=== PATIENT | male | born 1995 | race Caucasian/White ===

== ENCOUNTER 2019-06-22 21:50 | Inpatient (IN) | payer OTHER ==
[~2019-06-22] VITALS: Ht 175.3 cm; Wt 136.1 kg
[2019-06-22 21:55] VITALS: BP 150/78
--- NOTE | 2019-06-22 21:57 | NUR ---
TO LOBBY A/W BED AMBULATORY
--- NOTE | 2019-06-22 22:30 | NUR ---
PT. TAKEN TO BED 4 VIA WHEELCHAIR.
[2019-06-22] MEDS ORDERED: KETOROLAC 30 MG/ML VIAL IVP ONE (22:35)
[2019-06-22] MEDS ORDERED: LIDOCAINE MPF 1% 10 ML ONE (22:47)
--- NOTE | 2019-06-22 22:50 | NUR ---
24 Y/O M PRESENTS TO ER C/O S/P STEPPED ON A TOOTHPICK WITH PUNCTURE WOUND LAST MONDAY ON HIS LEFT FOOT WITH SWELLING, REDNESS, AND PAIN, SEEN IN AN URGENT CARE WITH PRESCRIPTION OG BACTRIM AND IBUPROFEN , TETANUS VACCINE UNKNOWN DATE. LEFT FOOT HAS ERYTHEMA AND SWELLING NOTED. HOB ELEVATED, BED IN LOWEST POSITION, SIDE RAIL UP X1. ERMD AT BEDSIDE. ALLERGIES: NKA MED HX: NONE
[2019-06-22] MEDS ORDERED: ceFAZolin 1,000 MG VIAL ONE (22:56)
[2019-06-22] MEDS ORDERED: LIDOCAINE MPF 1% 10 MG/ML VIAL INJ ONE (23:00)
--- NOTE | 2019-06-22 23:03 | NUR ---
CLEANED WOUND ON LEFT FOOT, APPLIED BACITRACIN AND NON ADHERENT DRESSING AND GAUZE WRAP
[2019-06-22 23:04] LABS: BASOPHILS # (AUTO) 0.1 K/uL (0.00-0.22); EOSINOPHILS # (AUTO) 0.2 K/uL (0-0.4); LYMPHOCYTES # (AUTO) 1.8 K/uL (2.0-11.5); MEAN CORPUSCULAR VOLUME 88.1 fL (80-94)
[2019-06-22] MEDS ORDERED: BACITRACIN OINT 500 UNITS/GM PKT TP ONE (23:05)
[2019-06-22 23:09] LABS: BASOPHILS % (AUTO) 0.7 % (0.0-2.0); EOSINOPHILS % (AUTO) 2.1 % (0.0-4.0); HEMATOCRIT 43.3 % (36-52); HEMOGLOBIN 14.5 g/dL (12.0-18.0); LYMPHOCYTES % (AUTO) 16.4 % (20.5-51.1); MEAN CORPUSCULAR HEMOGLOBIN 30 pg (27-31); MEAN CORPUSCULAR HGB CONC 33 g/dL (33-37); MONOCYTES % (AUTO) 8.9 % (1.7-9.3); NEUTROPHILS # (AUTO) 7.8 K/uL (1.8-7.7); NEUTROPHILS % (AUTO) 71.9 % (42.2-75.2); PLATELET COUNT (AUTO) 222 K/uL (140-450); RED BLOOD CELL COUNT(AUTO) 4.91 MIL/uL (4.20-6.10); WHITE BLOOD COUNT (AUTO) 10.8 K/uL (4.8-10.8)
--- NOTE | 2019-06-22 23:15 | NUR ---
PT AMBULATED TO RESTROOM
[2019-06-22 23:28] LABS: ALBUMIN 3.3 g/dL (3.4-5.0); ANION GAP 16.3 (8-16); CARBON DIOXIDE 24.7 mmol/L (21-32); CREATININE 1.2 mg/dL (0.7-1.3); TOTAL BILIRUBIN 0.3 mg/dL (0.0-1.0)
--- NOTE | 2019-06-23 | NUR ---
PT RESTING IN BED ON CELL PHONE. VSS. WILL CONTINUE TO MONITOR.
[2019-06-23 00:15] LABS: APPEARANCE,URINE CLEAR (CLEAR); BILIRUBIN,URINE 1+ (NEGATIVE); BLOOD, URINE NEGATIVE (NEGATIVE); COLOR,URINE YELLOW (YELLOW); LEUKOCYTE ESTERASE ,URINE NEGATIVE (NEGATIVE); NITRITE, URINE NEGATIVE (NEGATIVE); UGLUCOSE NEGATIVE (NEGATIVE)
[2019-06-23] MEDS ORDERED: KETOROLAC 30 MG/ML VIAL IVP PRN (00:15)
[2019-06-23] MEDS ORDERED: HYDROcodone/APAP 7.5/325 MG 1 TAB PO PRN (00:15)
[2019-06-23] MEDS ORDERED: ACETAMINOPHEN 325 MG TAB PO PRN (00:15)
[2019-06-23 00:25] LABS: RBC,URINE 0-5 /HPF (0-5); WBC,URINE 0-5 /HPF (0-5)
[2019-06-23 00:26] LABS: CALCIUM OXALATE CRYSTALS,UR 0-2 /HPF (None Seen)
[2019-06-23 00:38] VITALS: BP 130/68
--- NOTE | 2019-06-23 00:38 | NUR ---
ADMITTED 34 M FROM ER. CAME BY LINA DUE TO LEFT FOOT SWELLING, REDNESS SECONDARY TO CELLULITIS. WITH DRESSING ON . NO BLEEDING NOTED. MED SURG PT. AWAKE,ALERT AND ORIENTED X4. DENIES ANY PAIN AT THIS TIME. WITH ANCEF STILL INFUSING ON THE LEFT AC G#20. CLEAR AND PATENT. CAN AMBULATE WITH SLIGHT LIMPING ON TH ELT FOOT. ORIENTED TO HOSPITAL ROUTINES, BED ON LOW POSITION, SIDE RAILS UP X2. CALL LIGHT AND URINAL PLACED WITHIN EASY REACH. PLAN OF CARE DISCUSSED AND VERBALIZED UNDERSTANDING. WILL CONTINUE TO MONITOR.
--- NOTE | 2019-06-23 00:39 | NUR ---
TRANSFER OF CARE AND REPORT GIVEN TO ELIUD RN
--- NOTE | 2019-06-23 00:39 | NUR ---
Patient will be admitted to care of DR. RODRIGUEZ. Admited to MED/SURG. Will go to [id number]. Belongings list completed. Report to ROCKY KLINE.
[2019-06-23 00:50] LABS: BARBITURATE, URINE NEG. ng/ml (NEG <=200); BENZODIAZEPINE, URINE NEG. ng/mL (NEG <=200); CANNABINOID, URINE NEG. ng/mL (NEG <=50); COCAINE, URINE NEG. ng/mL (NEG <=300); OPIATE, URINE NEG. ng/mL (NEG <=2000); PHENCYCLIDINE SCREEN,URINE NEG. ng/mL (NEG <=25)
[2019-06-23 00:53] LABS: PROTHROMBIN TIME 8.8 secs (10.8-13.4)
[2019-06-23 00:58] LABS: CHOL/HDL RATIO 5.8 (1-4.5); FREE T4 (FREE THYROXINE) 1.02 ng/dL (0.76-1.46); MAGNESIUM 1.7 mg/dL (1.8-2.4); PHOSPHORUS 2.8 mg/dL (2.5-4.9); THYROID STIMULATING HORMONE 3.31 uIU/mL (0.34-3.74)
[2019-06-23] MEDS: NACL 0.9% 1,000 ML IV SCH ×2 (01:21→18:09)
--- NOTE | 2019-06-23 01:21 | NUR ---
NS @60 ML /HR STARTED ON THE LEFT AC G#20. PT NPO EXCEPT MEDS FOR NOW. PT MADE AWARE.
--- NOTE | 2019-06-23 02:20 | NUR ---
TOOK PICTURE OF THE LT FOOT CELLULITIS . CLEANED AND SPECIMEN FOR AEROBIC AND ANAEROBIC CULTURE COLLECTED . SEND TO LAB.
[2019-06-23] MEDS ORDERED: CLINDAMYCIN 600 MG/4 ML VIAL ONE (03:18)
[2019-06-23] MEDS: CLINDAMYCIN 600 MG in DEXTROSE 5% 50 ML IV SCH ×3 (04:32→20:44)
--- NOTE | 2019-06-23 04:32 | NUR ---
CLEOCIN IVPB IST DOSE STARTED . WILL CONTINUE TO MONITOR.
--- NOTE | 2019-06-23 05:05 | NUR ---
MAGNESIUM LOW 1.7 SO /ANALY ,RESIDENT MADE AWARE. WILL WAIT FOR ORDER.
--- NOTE | 2019-06-23 06:41 | NUR ---
AWAKE. NO C/O ANY PAIN NOR DISCOMFORT NOTED.
--- NOTE | 2019-06-23 07:31 | NUR ---
ENDORSED PT IN STABLE CONDITION TO AM NURSE.
--- NOTE | 2019-06-23 07:35 | NUR ---
PT IS AO X4. BEDSIDE RAILS UP X2, BED LOCKED AND IN LOWEST POSITION, URINAL AT BEDSIDE. ASSESSMENT WAS COMPLETED WITH NURSE STUDENT WITH RN OBSERVING. NO COMPLAINTS AT THIS TIME
[2019-06-23 08:00] VITALS: BP 120/59
[2019-06-23] MEDS: LACTOBACILLUS RHAMNOSUS GG 1 EACH CAP PO SCH (09:02)
[2019-06-23 10:15] LABS: BASOPHILS % (AUTO) 0.5 % (0.0-2.0); EOSINOPHILS # (AUTO) 0.1 K/uL (0-0.4); EOSINOPHILS % (AUTO) 1.2 % (0.0-4.0); HEMATOCRIT 40.4 % (36-52); HEMOGLOBIN 13.5 g/dL (12.0-18.0); LYMPHOCYTES # (AUTO) 1.3 K/uL (2.0-11.5); LYMPHOCYTES % (AUTO) 15.4 % (20.5-51.1); MEAN CORPUSCULAR HEMOGLOBIN 30 pg (27-31); MEAN CORPUSCULAR HGB CONC 33 g/dL (33-37); MEAN CORPUSCULAR VOLUME 88.4 fL (80-94); MONOCYTES # (AUTO) 0.8 K/uL (0.8-1.0); MONOCYTES % (AUTO) 9.3 % (1.7-9.3); NEUTROPHILS # (AUTO) 6.3 K/uL (1.8-7.7); NEUTROPHILS % (AUTO) 73.6 % (42.2-75.2); PLATELET COUNT (AUTO) 203 K/uL (140-450); RED BLOOD CELL COUNT(AUTO) 4.57 MIL/uL (4.20-6.10); RED CELL DISTRIBUTION WIDTH 12.8 % (11.6-13.7); WHITE BLOOD COUNT (AUTO) 8.5 K/uL (4.8-10.8)
--- NOTE | 2019-06-23 10:30 | NUR ---
SPOKE TO LABS AND THEY CONFIRMED THAT THEY WILL RUN THE LAB RESULTS FOR MAGNESIUM RN WILL THEN CALL THE PROVIDER IF LEVEL IS STILL BELOW 1.8
[2019-06-23 10:57] LABS: ANION GAP 15.7 (8-16); CARBON DIOXIDE 23.5 mmol/L (21-32); CREATININE 1.1 mg/dL (0.7-1.3); POTASSIUM 4.2 mmol/L (3.5-5.1)
--- NOTE | 2019-06-23 11:08 | NUR ---
DR. SALAZAR WAS HERE TO SEE PT AND TOLD RN THAT HE WILL CHANGE THE DIET ORDERS SO PT CAN EAT SINCE QUALITY CONTROL AUDITOR WILL NOT DO ANY PROCEDURE ON PT WILL SHARE INFO WITH PT
--- NOTE | 2019-06-23 11:33 | NUR ---
CALLED [facility] AND THEY SAID THAT THEY WILL BRING A LUNCH TRAY FOR PATIENT
--- NOTE | 2019-06-23 12:40 | NUR ---
PT ATE 100% OF HIS LUNCH MEAL
--- NOTE | 2019-06-23 13:14 | NUR ---
PT RECEIVING ANTIBIOTICS NOW
[2019-06-23 16:18] VITALS: BP 109/50
--- NOTE | 2019-06-23 16:35 | NUR ---
PT TOLD RN THAT HE DOESN'T HAVE PAIN AT THIS TIME AND WILL INFORM HER IF HE NEEDS PAIN MED
--- NOTE | 2019-06-23 17:58 | NUR ---
PT RECEIVED SCDS
--- NOTE | 2019-06-23 18:42 | NUR ---
DRESSING ON LEFT FOOT WAS CHANGED. PATIENT TOLERATED WELL
--- NOTE | 2019-06-23 19:07 | NUR ---
PT ENDORSED IN STABLE CONDITIONS TO NIGHT NURSE ALL QUESTIONS ANSWERED
--- NOTE | 2019-06-23 19:12 | NUR ---
RECEIVED PT IN STABLE CONDITION FORM AM NURSE. MED SURG PT. AWAKE,ALERT AND ORIENTED X4. WITH NO C/O ANY PAIN NOR DISCOMFORT NOTED. LT FOOT CELLULITIS WITH DRESSING IN PLACED . STILL SWOLLEN AND HAS REDNESS. IVF INFUSING WELL ON THE LT AC G#20.CLEAR AND PATENT. PLAN OF CARE DISCUSSED AND VERBALIZED UNDERSTANDING. BED ON LOW POSITION. SIDE RIALS UP X2. CALL LIGHT AND URINAL WITHIN EASY REACH. WILL CONTINUE TO MONITOR.
--- NOTE | 2019-06-23 21:15 | NUR ---
PT ASSISTED UP TO WASH UP IN BEDSIDE. NO C/O ANY DISCOMFORT NOTED.
--- NOTE | 2019-06-23 22:30 | NUR ---
PT STILL AWAKE. NO C/O ANY PAIN NOR DISCOMFORT NOTED.
[2019-06-23 23:44] VITALS: BP 109/68
--- NOTE | 2019-06-24 00:30 | NUR ---
PT AWAKE. NO C/O ANY DISCOMFORT FROM THE LT FOOT AT THIS TIME.
--- NOTE | 2019-06-24 02:00 | NUR ---
ASLEEP. NO C/O ANY PAIN NOR DISCOMFORT NOTED.
--- NOTE | 2019-06-24 04:00 | NUR ---
PT IS ASLEEP. STABLE DURING THE NIGHT.
[2019-06-24] MEDS: CLINDAMYCIN 600 MG in DEXTROSE 5% 50 ML IV SCH ×3 (04:21→20:08)
--- NOTE | 2019-06-24 07:00 | NUR ---
ENDORSED PT IN STABLE CONDITION TO AM NURSE.
[2019-06-24 07:25] LABS: BASOPHILS % (AUTO) 0.6 % (0.0-2.0); EOSINOPHILS # (AUTO) 0.1 K/uL (0-0.4); EOSINOPHILS % (AUTO) 1.8 % (0.0-4.0); HEMATOCRIT 41.3 % (36-52); HEMOGLOBIN 13.6 g/dL (12.0-18.0); LYMPHOCYTES # (AUTO) 1.4 K/uL (2.0-11.5); LYMPHOCYTES % (AUTO) 17.8 % (20.5-51.1); MEAN CORPUSCULAR HEMOGLOBIN 29 pg (27-31); MEAN CORPUSCULAR HGB CONC 33 g/dL (33-37); MEAN CORPUSCULAR VOLUME 88.2 fL (80-94); MONOCYTES # (AUTO) 0.8 K/uL (0.8-1.0); MONOCYTES % (AUTO) 9.7 % (1.7-9.3); NEUTROPHILS # (AUTO) 5.4 K/uL (1.8-7.7); NEUTROPHILS % (AUTO) 70.1 % (42.2-75.2); PLATELET COUNT (AUTO) 223 K/uL (140-450); RED BLOOD CELL COUNT(AUTO) 4.68 MIL/uL (4.20-6.10); RED CELL DISTRIBUTION WIDTH 13.1 % (11.6-13.7); WHITE BLOOD COUNT (AUTO) 7.8 K/uL (4.8-10.8)
[2019-06-24 07:34] LABS: ANION GAP 12.3 (8-16); CARBON DIOXIDE 26.1 mmol/L (21-32); POTASSIUM 4.4 mmol/L (3.5-5.1)
--- NOTE | 2019-06-24 07:35 | NUR ---
RECEIVED PT IN STABLE CONDITIONS. PT IS AO X4. BEDSIDE RAILS UP X2, BED LOCKED AND IN LOWEST POSITION. NO C/O PAIN AT THIS TIME.
[2019-06-24 07:43] LABS: MAGNESIUM 2.1 mg/dL (1.8-2.4); PHOSPHORUS 3.2 mg/dL (2.5-4.9)
[2019-06-24 08:00] VITALS: BP_SYST 129; BP_SYST 74; BP_DIAS 120; BP_DIAS 74
--- NOTE | 2019-06-24 08:25 | NUR ---
PATIENT HAS BEEN SCREENED AND CATEGORIZED MODERATE NUTRITION RISK. PATIENT WILL BE SEEN WITHIN 3-5 DAYS OF ADMISSION. 06/25/19 06/27/[address]
[2019-06-24] MEDS: LACTOBACILLUS RHAMNOSUS GG 1 EACH CAP PO SCH (08:47)
[2019-06-24] MEDS: NACL 0.9% 1,000 ML IV SCH (08:47)
--- NOTE | 2019-06-24 09:00 | NUR ---
PT HAS A BLOOD PRESSURE OF 120/76 FOR 0800 VITALS. THE FLOWSHEET COULDN'T BE EDITED.
--- NOTE | 2019-06-24 10:28 | NUR ---
PT.HAS BEEN SEEN AND EXAM BY RUBEN MURRY, 06/23/2019. X-RAY AND US DONE, LEFT DORSAL FEET ERYTHEMA, EDEMA AND PAIN TO TOUCH. 10/21, PER PT. REDNESS IS DECREASING, PLEASE CONTINUE TO FOLLOW DIVISION SERGEANT'S RECOMMENDATIONS Addendum: 06/24/19 at 1048 by Lilo Golden RN (Grace) LEFT HALLUX PLANTAR PARTIAL THICKNESS LOSS OF SKIN ,1.5X1.5CM WITH SUPERFICIAL DEPTH, WOUND BED IS PINK, MOIST SHELLIE-WOUND SKIN INTACT WITH SWELLING, PT. DEFILES OF PAIN, RECOMMEND TO CLEANSE LEFT HALLUX PLANTAR WITH NS, PAT DRY APPLY SILVASORB GEL COVER WITH DRY DRESSING QD AND PRN IF SOILING. CONTINUE TO FOLLOW UP WITH DR. MIRANDA., PT. VERBALIZES UNDERSTANDING.
--- NOTE | 2019-06-24 10:33 | NUR ---
CLINDAMYCIN INFUSING. PT TOLERATING WELL. NO COMPLAINTS AT THIS TIME
--- NOTE | 2019-06-24 10:51 | NUR ---
SPOKE TO DR. MARINO OF RECOMMENDATION,PER DR. MARINO HE WILL FOLLOW.
--- NOTE | 2019-06-24 11:49 | NUR ---
INFORMED PT THAT I SPOKE TO DR. MARINO AND PT WILL BE DC BY TOMORROW.
--- NOTE | 2019-06-24 12:25 | NUR ---
PT HAD 600 CC OF URINE FROM URINAL.
--- NOTE | 2019-06-24 14:05 | NUR ---
PT SITTING IN BED WITH NO SIGNS OF DISTRESS.
--- NOTE | 2019-06-24 14:43 | NUR ---
Distance Learning Program Coordinator Note: Basic Screen: Yes High Risk DC Screen [place]: TISHA Mancilla Relationship: MOTHER Pre-Admission Living Arrangements: Lives with Other Prior ADL Independent Current Home Health Name/Tel: N/A Current DME/02 Name/Tel: N/A Current Hospice Name/Tel: N/A Current Dialysis Name/Tel: N/A Healthcare Decision Maker: Patient Advance Directive No - REFUSED Physician Orders for Life Sustaining Treatment Form No Patient/Family Have Educational Needs No Information Taught: Advance Directive Person Taught: Patient Teaching Tools: Verbal Factors Affecting Learning: None Participation Level: Refused Evaluation: Verbalizes Understanding Needs Additional Education: No Discipline: Case Mgt/Social Svcs Tentative Discharge Plan/Destination: No Needs Identified Will require assistance post discharge: No Referred to Secondary School Principal: No Tentative Discharge Plan Summary: Patient is a 24 year old male who was admitted for cellulitis. Patientw as admitted from home. Patient denies medical hx. SW verified demographics with patient. Patient stated that he does not have a PCP and could not recall the last time he had seen one. SW offered low cost clinics but patient refused. Patient reports having a hx of bipolar disorder 9 years ago, but discontinued medication at age 18. Patient stated that he has not had any mental health issues since and refused mental health resources. Patient denies substance abuse history. Patient's tentative plan after discharge is to return home. No further needs identified. Signature: NILO Proctor Date: Jun 24, 2019 Time: 14:41
[2019-06-24 16:11] VITALS: BP 120/69
--- NOTE | 2019-06-24 16:58 | NUR ---
pt lying in bed with no complaints or distress. Visitors are at bedside. pt made aware that the the attending doctor allows him to have eat food outside of hospital.
--- NOTE | 2019-06-24 19:17 | NUR ---
PT ENDORSED IN STABLE CONDITIONS TO NIGHT NURSE, MARIAM RN ALL QUESTIONS ANSWERED
--- NOTE | 2019-06-24 19:18 | NUR ---
REPORT RECEIVED FROM AM NURSE AT BEDSIDE. PT IN STABLE CONDITION. AAOX4. INTRODUCED SELF TO PT. BOARD UPDATED. NO COMPLAINTS OF PAIN. NO SOB. AFEBRILE. PT IS AMBULATORY BUT CURRENTLY ON BEDREST DUE TO CELLULITIS OF THE FOOT. IV SITE L AC 20G RUNNING NS@60ML/HR PATENT AND INTACT. SKIN WARM, DRY, AND INTACT WITH NO OPEN WOUNDS. BED LOCKED IN LOW POSITION. CALL JOHN WITHIN REACH. SAFETY PRECAUTION IN PLACE. ALL NEEDS MET AT THIS TIME.
--- NOTE | 2019-06-24 20:08 | NUR ---
CLEOCIN HUNG AND RUNNING. PT TOLERATING WELL.
--- NOTE | 2019-06-24 21:55 | NUR ---
PT SLEEPING COMFORTABLY BUT AROUSABLE. NO S/S OF DISTRESS NOTED. WILL CONTINUE TO MONITOR.
--- NOTE | 2019-06-24 23:55 | NUR ---
PT SLEEPING COMFORTABLY BUT AROUSABLE. NO S/S OF DISTRESS NOTED. VS STABLE. WILL CONTINUE TO MONITOR.
[2019-06-25] VITALS: BP 116/62
--- NOTE | 2019-06-25 01:40 | NUR ---
PT SLEEPING COMFORTABLY BUT AROUSABLE. NO S/S OF DISTRESS NOTED. NO COMPLAINTS OF PAIN. NO SOB. AFEBRILE. WILL CONTINUE TO MONITOR.
--- NOTE | 2019-06-25 03:20 | NUR ---
PT SLEEPING COMFORTABLY BUT AROUSABLE. NO S/S OF DISTRESS NOTED. RESPIRATIONS EVEN, UNLABORED, AND WNL. WILL CONTINUE TO MONITOR.
[2019-06-25] MEDS: NACL 0.9% 1,000 ML IV SCH (04:24)
[2019-06-25] MEDS: CLINDAMYCIN 600 MG in DEXTROSE 5% 50 ML IV SCH (04:25)
--- NOTE | 2019-06-25 04:25 | NUR ---
CLEOCIN HUNG AND RUNNING. PT TOLERATING WELL.
[2019-06-25 05:43] LABS: ANION GAP 9.2 (8-16); CARBON DIOXIDE 29.4 mmol/L (21-32); CREATININE 1.1 mg/dL (0.7-1.3); POTASSIUM 4.6 mmol/L (3.5-5.1)
[2019-06-25 05:51] LABS: MAGNESIUM 1.9 mg/dL (1.8-2.4); PHOSPHORUS 4.1 mg/dL (2.5-4.9)
[2019-06-25 06:38] LABS: BASOPHILS % (AUTO) 0.6 % (0.0-2.0); EOSINOPHILS # (AUTO) 0.2 K/uL (0-0.4); EOSINOPHILS % (AUTO) 2.8 % (0.0-4.0); HEMOGLOBIN 13.6 g/dL (12.0-18.0); LYMPHOCYTES # (AUTO) 1.6 K/uL (2.0-11.5); LYMPHOCYTES % (AUTO) 22.3 % (20.5-51.1); MEAN CORPUSCULAR HEMOGLOBIN 29 pg (27-31); MEAN CORPUSCULAR HGB CONC 33 g/dL (33-37); MEAN CORPUSCULAR VOLUME 87.6 fL (80-94); MONOCYTES # (AUTO) 0.7 K/uL (0.8-1.0); MONOCYTES % (AUTO) 9.5 % (1.7-9.3); NEUTROPHILS # (AUTO) 4.7 K/uL (1.8-7.7); NEUTROPHILS % (AUTO) 64.8 % (42.2-75.2); PLATELET COUNT (AUTO) 241 K/uL (140-450); RED BLOOD CELL COUNT(AUTO) 4.68 MIL/uL (4.20-6.10); RED CELL DISTRIBUTION WIDTH 13.1 % (11.6-13.7); WHITE BLOOD COUNT (AUTO) 7.3 K/uL (4.8-10.8)
--- NOTE | 2019-06-25 06:50 | NUR ---
PT SLEEPING COMFORTABLY BUT AROUSABLE. PT IN STABLE CONDITION.
--- NOTE | 2019-06-25 07:15 | NUR ---
RECEIVED REPORT FROM INSPECTOR WIRE ROPE NURSE FOR CONTINUITY OF CARE. PT IN STABLE CONDITION. RESPIRATIONS EVEN AND UNLABORED. IV INTACT AND PATENT. SAFETY MEASURES IN PLACE. BED IN LOW POSITION. CALL LIGHT AT BEDSIDE. WILL CONTINUE TO MONITOR.
[2019-06-25 08:00] VITALS: BP 122/74
[2019-06-25] MEDS ORDERED: LACT10CA PO (08:28)
[2019-06-25] MEDS ORDERED: SULF-59 PO (08:28)
[2019-06-25] MEDS ORDERED: ACET-9529 PO (08:28)
[2019-06-25] MEDS ORDERED: IBUP-2213 PO (08:47)
--- NOTE | 2019-06-25 09:24 | NUR ---
CONTACTED [email or web address] AT [phone], ABLE TO SPEAK TO CAROLINA CORMIER REGARDING ORDER FOR HOME HEALTH FOR WOUND CARE. SHE PROVIDED ME WITH FAX NUMBER [phone] TO SEND ORDER. ORDER SENT. SHE ALSO STATED THAT THEIR CONTRACTED HOME HEALTH IS [facility]. WILL FOLLOW UP. Addendum: 06/25/19 at 1046 by Vale Bee CM CONTACTED [email or web address] TO FOLLOW UP ORDER SENT, ABLE TO SPEAK TO DEVIN. SHE STATED TO CHECK AGAIN LATER, FAX TRANSMISSION WILL TAKE SOMETIME. CASA TO FOLLOW UP. Addendum: 06/25/19 at 1121 by Vale Bee CM CONTACTED [facility] AGAIN, ABLE TO SPEAK TO DEVIN TO FOLLOW UP ORDER FOR HOME HEALTH SENT. SHE STATED SHE TRANSFERRED ME TO AGATHA VALDEZ CM, NO ANSWER. LEFT MESSAGE WITH CONTACT INFO. WILL FOLLOW UP. Addendum: 06/25/19 at 1138 by Vale Bee CM RECEIVED A CALL FROM BROOK GTZ CM FROM [facility], SHE PROVIDED ME WITH LIST OF CONTRACTED HOME HEALTH AGENCIES. MET WITH THE PATIENT AT THE BEDSIDE REGARDING CONTRACTED HOME HEALTH, HE STATED HE DOES NOT HAVE ANY PREFERENCE. I INFORMED HIM THAT I WILL GIVE HIM A CALL SOON I GET AN ACCEPTING HH, ABLE TO VERBALIZE UNDERSTANDING. PRIMARY RN BROOK INFORMED TO PROVIDE DRESSING SUPPLIES TO THE PATIENT. Addendum: 06/25/19 at 1159 by Vale Bee CM CONTACTED [facility] AT [phone], ABLE TO SPEAK TO RADHAJaspreet REGARDING INQUIRY. SHE PROVIDED ME WITH FAX NUMBER [phone] TO SEND REFERRAL. CONTACTED [facility] AT [phone], ABLE TO SPEAK TO AMANDEEP. REFERRAL SENT TO [phone]. CONTACTED [facility] AT [phone], ABLE TO SPEAK TO AXEL. REFERRAL SENT TO [phone]. Addendum: 06/25/19 at 1204 by Vale Bee CM RECEIVED A CALL FROM [facility], SHE STATED THEY CANNOT ACCEPT THE PATIENT DUE TO THEY ARE NOT CONTRACTED WITH [employer]. Addendum: 06/25/19 at 1213 by Vale Bee CM PER AMANDEEP [facility], THEY ARE NOT ABLE TO ACCEPT THE PATIENT DUE TO THEY ARE NOT CONTRACTED WITH [employer]. Addendum: 06/25/19 at 1220 by Vale Bee CM CONTACTED BROOK GTZ CM OF [employer], NO ANSWER. LEFT MESSAGE. Addendum: 06/25/19 at 1341 by Luke Valenzuela SS Axel from [employer] contacted SW. [place] stated that [employer] does not have a contract with [facility]. Addendum: 06/25/19 at 1405 by Luke Valenzuela SS VICTOR HUGO sent clinical packet to [facility] [phone]. Addendum: 06/25/19 at 1414 by Luke ZAMUDIO Michael from [facility] stated that they do not accept [employer]. Addendum: 06/25/19 at 1525 by Luke Valenzuela SS Contacted Brook from [facility] [phone]. Brook stated that there has been an update to patient's plan which is why the home healths provided are now not contracted. Per Brook, patient is to be referred to PCP for referral to home health. SW will follow up as needed. Addendum: 06/25/19 at 1605 by Luke Valenzuela SS SW made appointment for patient with PCP Dr. Galo Underwood. Patient was notified of appointment time: 2:30PM on 07/01/2019 @ [address] [place] [address].
[2019-06-25] MEDS: LACTOBACILLUS RHAMNOSUS GG 1 EACH CAP PO SCH (09:49)
--- NOTE | 2019-06-25 10:45 | NUR ---
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 REMOVED IV, LUMEN INTACT. REMOVED ID BAND. PT WAITING ON FAMILY TO PICK HIM UP AT THIS TIME.
--- NOTE | 2019-06-25 10:46 | NUR ---
PICTURE TAKEN OF LEFT FOOT CELLULITIS WOUND. CLEANED AND DRESSED WOUND AT THIS TIME. PT TOLERATED WELL.
--- NOTE | 2019-06-25 11:30 | NUR ---
WHEELED PT TO LOBBY WHERE FAMILY IS WAITING WITH VEHICLE. PT IN STABLE CONDITION.
--- NOTE | 2019-06-25 12:42 | NUR ---
RECEIVED A CALL FROM ALYSSA GTZ OF [employer], MADE HER AWARE THAT 2 HOME HEALTH AGENCIES ON THE LIST SAID NO DUE TO THEY ARE NOT CONTRACTED WITH [facility].
== END 2019-06-25 11:30 | disposition home or self-care (01) | DRG 603 ==
LOC: MED 21:50 → MMU 06-23 00:14
PROVIDERS: ADMIT General Practice; ATTEND General Practice
PROC: 0Y9N0ZZ Drainage of Left Foot, Open Approach (ICD-10-PCS; principal; 2019-06-23)
DX: L03.116 Cellulitis of left lower limb (principal); E44.0 Moderate protein-calorie malnutrition; Z68.41 Body mass index [BMI] 40.0-44.9, adult; E66.01 Morbid (severe) obesity due to excess calories
CPT/HCPCS: 36415; 71045; 73620; 76536; 80048; 80053; 80305; 81001; 82550; 83036; 83605; 83690; 83735; 83880; 84100; 84439; 84443; 85025; 85610; 85730; 87040; 87070; 87081; 87186; 90471; 90715; 93005; 96365; 96375; 99285; J0690; J0696; J1885; J2001; J3490; J7030; J7060; Q0092

== ENCOUNTER 2019-07-16 13:15 | Emergency (ER) | payer OTHER ==
[~2019-07-16] VITALS: Ht 177.8 cm; Wt 137.6 kg
[~2019-07-16 13:15] MED LIST: IBUP-2213 PO; LACT10CA PO; SULF-59 PO
[2019-07-16 13:23] VITALS: BP 155/84
--- NOTE | 2019-07-16 13:46 | NUR ---
Patient ambulated to bed 2. RN evaluating patient at bedside.
--- NOTE | 2019-07-16 13:49 | NUR ---
24M Y/O M C/O N/V/D X1 DAY WITH LOWER ABDOMINAL PAIN. BOWEL SOUNDS ACTIVE IN ALL 4 QUADRANTS. MED HX: FOOT INFECTION X3 WEEKS AGO, TUBES IN EARS, NASAL INFECTION 2009 NKA
[2019-07-16] MEDS ORDERED: ONDANSETRON 4 MG/2 ML VIAL IVP ONE (14:40)
[2019-07-16] MEDS ORDERED: NACL 0.9% 1,000 ML IV ONE (14:40)
[2019-07-16 15:08] LABS: HEMATOCRIT 43.6 % (36-52); HEMOGLOBIN 14.4 g/dL (12.0-18.0); MEAN CORPUSCULAR HEMOGLOBIN 29 pg (27-31); MEAN CORPUSCULAR HGB CONC 33 g/dL (33-37); PLATELET COUNT (AUTO) 211 K/uL (140-450); RED BLOOD CELL COUNT(AUTO) 5.02 MIL/uL (4.20-6.10); RED CELL DISTRIBUTION WIDTH 13.3 % (11.6-13.7); WHITE BLOOD COUNT (AUTO) 6.1 K/uL (4.8-10.8)
[2019-07-16 15:18] LABS: ANION GAP 11.9 (8-16); CARBON DIOXIDE 28.6 mmol/L (21-32); POTASSIUM 3.5 mmol/L (3.5-5.1)
[2019-07-16 15:25] LABS: ALBUMIN 3.7 g/dL (3.4-5.0); TOTAL BILIRUBIN 0.5 mg/dL (0.0-1.0)
[2019-07-16 15:25] LABS: BILIRUBIN,URINE NEGATIVE (NEGATIVE); BLOOD, URINE NEGATIVE (NEGATIVE); LEUKOCYTE ESTERASE ,URINE NEGATIVE (NEGATIVE); NITRITE, URINE NEGATIVE (NEGATIVE); UGLUCOSE NEGATIVE (NEGATIVE)
[2019-07-16 15:26] LABS: APPEARANCE,URINE CLEAR (CLEAR); COLOR,URINE AMBER (YELLOW)
[2019-07-16 15:37] LABS: EOSINOPHILS % (MANUAL) 1 % (0-4); LYMPHOCYTES % (MANUAL) 24 % (20-46); MONOCYTES % (MANUAL) 11 % (5-12)
--- NOTE | 2019-07-16 16:14 | NUR ---
MD EVALUATING PATIENT AT BEDSIDE.
[2019-07-16 16:29] VITALS: BP 119/61
--- NOTE | 2019-07-16 16:29 | NUR ---
Patient discharged with v/s stable. Written and verbal after care instructions given and explained. Patient alert, oriented and verbalized understanding of instructions. Ambulatory with steady gait. All questions addressed prior to discharge. ID band removed. Patient advised to follow up with PMD. Rx of LOMITIL, BENTYL, AND ZOFRAN given. Patient educated on indication of medication including possible reaction and side effects. Opportunity to ask questions provided and answered.
== END 2019-07-16 16:29 | disposition home or self-care (01) ==
LOC: MED 13:15
DX: K52.9 Noninfective gastroenteritis and colitis, unspecified (principal); I10 Essential (primary) hypertension; Z79.899 Other long term (current) drug therapy
CPT/HCPCS: 36415; 80053; 81003; 83690; 85025; 99283; J2405